=== PATIENT | male | born 1950 ===

== ENCOUNTER 2021-07-09 22:16 | Inpatient (IN) | payer MEDICARE, OTHER ==
[~2021-07-09] VITALS: Ht 177.8 cm; Wt 64.0 kg
--- NOTE | 2021-07-09 22:21 | NUR ---
PT BIB [facility] FROM HOME C/O CP THAT STARTED 1 HR [employer]. PARAMEDICS GAVE PT ASPIRIN 325 ON FIELD, UPON ARRIVAL PT DENIES PAIN. AO X4, NO SOB OR LABORED BREATHING, DENIES N/V. NO VAZ/DIZZYNESS. CLEAR SPEECH, COMPLETE SENTENCES. BILATERAL HAND TRAINING SPECIALIST EQUAL, ABLE TO AMBULATE FROM GURNEY TO BED, ABLE TO MOVE ALL EXTEMITIES WITHIN NORMAL LIMITS.
--- NOTE | 2021-07-09 22:22 | NUR ---
DR. CHAPARRO AT BEDSIDE, MSE IN PROGRESS.
--- NOTE | 2021-07-09 22:27 | NUR ---
XRAY AT BEDSIDE.
[2021-07-09] MEDS ORDERED: DONE5TAB7 PO (22:29)
[2021-07-09] MEDS ORDERED: SILD50TA PO (22:29)
[2021-07-09] MEDS ORDERED: LISI-782 PO (22:29)
[2021-07-09] MEDS ORDERED: CLOP75TA15 PO (22:29)
[2021-07-09 22:45] LABS: HEMATOCRIT 38.6 % (36.7-47.1); MEAN CORPUSCULAR HEMOGLOBIN 33.5 uug (23.8-33.4); MEAN CORPUSCULAR VOLUME 96.8 fL (73.0-96.2); PLATELET COUNT (AUTO) 256 K/uL (152-348)
[2021-07-09 22:50] LABS: CARBON DIOXIDE 25 mmol/L (21-32); CHLORIDE 104 mmol/L (98-107); CREATININE 1.4 mg/dL (0.6-1.3); GLUCOSE 107 mg/dL (74-106); POTASSIUM 3.9 mmol/L (3.5-5.1); UREA NITROGEN, BLOOD 26 mg/dL (7-18)
[2021-07-09 23:01] LABS: ALANINE AMINOTRANSFERASE 22 U/L (16-63); ALKALINE PHOSPHATASE 73 U/L (50-136); ASPARTATE AMINOTRANSFERASE 17 U/L (15-37); BILIRUBIN,DIRECT 0.1 mg/dL (0.0-0.2); BILIRUBIN,TOTAL 0.2 mg/dL (0.2-1.0); TOTAL PROTEIN, SERUM 7.5 g/dL (6.4-8.2)
--- NOTE | 2021-07-09 23:27 | NUR ---
Pt needs further follow up with medication dosages and frequencies.
[2021-07-10] MEDS ORDERED: ONDANSETRON 4 MG/2 ML VIAL IV PRN
[2021-07-10] MEDS ORDERED: REMEDY ESSENTIAL ZINC PASTE 113 GM TP PRN
[2021-07-10] MEDS ORDERED: ACETAMINOPHEN 325 MG TABLET PO PRN
[2021-07-10] MEDS ORDERED: MAGNESIUM HYDROXIDE 30 ML LIQUID UDC PO PRN
[2021-07-10] MEDS ORDERED: IV NS 1000 ML 1,000 ML IV ONE (00:15)
--- NOTE | 2021-07-10 01:17 | NUR ---
Gave report to Peggy BLEVINS. Pt being admitted to Tele room [address] Arceo, DX: Chest Pain.
--- NOTE | 2021-07-10 01:54 | NUR ---
Pt brought upstairs in stable condition.
--- NOTE | 2021-07-10 02:30 | NUR ---
Admitted pt to tele via gurben from ER accompanied by FELICITY Verduzco. He is alert and oriented x4, able to make needs known, Telugu/Urdu speaking. On room air, no respiratory distress noted. VS taken, denies pain and discomfort at this time. NSR on Tele. He is continent to B&B. Urinal at bedside. IV line on LAC #20 patent and intact. Started on NS 1L running at 100 ml/hr. No s/sx of infiltration. Skin is intact. All needs attended. Call light placed within reach. Will continue to monitor.
[2021-07-10 02:31] VITALS: BP 142/87
[2021-07-10 04:00] VITALS: BP 148/88
[2021-07-10 06:50] LABS: HEMATOCRIT 36.2 % (36.7-47.1); MEAN CORPUSCULAR HEMOGLOBIN 32.9 uug (23.8-33.4); MEAN CORPUSCULAR VOLUME 98.3 fL (73.0-96.2); PLATELET COUNT (AUTO) 246 K/uL (152-348)
[2021-07-10 07:24] LABS: CREATININE 1.2 mg/dL (0.6-1.3); PHOSPHOROUS 3.8 mg/dL (2.5-4.9); POTASSIUM 4.1 mmol/L (3.5-5.1)
--- NOTE | 2021-07-10 07:30 | NUR ---
Awake, alert, oriented x 4. Denies chest pain. Room air. IVF infusing.
[2021-07-10] MEDS: CLOPIDOGREL 75 MG TABLET PO SCH (10:10)
[2021-07-10] MEDS: LISINOPRIL 5 MG TABLET PO SCH (10:10)
[2021-07-10] MEDS: DONEPEZIL 5 MG TABLET PO SCH (10:10)
[2021-07-10 12:00] VITALS: BP 153/63
--- NOTE | 2021-07-10 15:30 | NUR ---
Dr. Lizarraga seen for cardiology consult with order for CTA Cardio. CHELI Blackmon informed, arranging for schedule
[2021-07-10 16:00] VITALS: BP 149/60
[2021-07-10] MEDS: ASPIRIN EC 81 MG TABLET.DR PO SCH (16:46)
[2021-07-10] MEDS: METOPROLOL TARTRATE 25 MG TABLET PO SCH ×2 (16:47→21:13)
--- NOTE | 2021-07-10 18:00 | NUR ---
Denies chest pain, not in distress
[2021-07-10 20:24] VITALS: BP 148/64
[2021-07-10] MEDS: ATORVASTATIN 40 MG TABLET PO SCH (21:12)
[2021-07-11 00:18] VITALS: BP 132/69
[2021-07-11 04:00] VITALS: BP 164/71
--- NOTE | 2021-07-11 08:00 | NUR ---
Dr Fernandez here to see patient. Discussed CTA procedure pt agreeable with test. Awaiting CM arrangement for CTA @ [facility]. PT is in no acute distress. Call light is within reach. Pt alert and oriented x 4.
[2021-07-11] MEDS: CLOPIDOGREL 75 MG TABLET PO SCH (09:02)
[2021-07-11] MEDS: ASPIRIN EC 81 MG TABLET.DR PO SCH (09:02)
[2021-07-11] MEDS: DONEPEZIL 5 MG TABLET PO SCH (09:02)
[2021-07-11] MEDS: LISINOPRIL 5 MG TABLET PO SCH (09:03)
[2021-07-11] MEDS: METOPROLOL TARTRATE 25 MG TABLET PO SCH ×2 (09:04→20:33)
[2021-07-11 12:00] VITALS: BP 161/69
--- NOTE | 2021-07-11 13:30 | NUR ---
CT angiogram consent signed. PT picked up by ambulance.
--- NOTE | 2021-07-11 16:46 | NUR ---
f/u call made to AMBERLY in MRI for the CTA result. No result yet.
--- NOTE | 2021-07-11 18:30 | NUR ---
Notified DR mccain of cta result. pt to stay and hold d/c.
--- NOTE | 2021-07-11 18:47 | NUR ---
Per Dr Fernandez pt is to stay and possible stent placement for weds. PT agreeable on staying over. PT is in no acute distress. Denies any cp today.
[2021-07-11] MEDS ORDERED: ICOS1CAP PO (19:50)
[2021-07-11] MEDS ORDERED: OMEP40CA21 PO (19:50)
[2021-07-11] MEDS ORDERED: MEMA1CAP5 PO (19:52)
[2021-07-11] MEDS ORDERED: CARV6.25 PO (19:52)
[2021-07-11] MEDS ORDERED: MAGN400T26 PO (19:52)
[2021-07-11] MEDS ORDERED: LISI1TAB55 PO (19:52)
[2021-07-11] MEDS: ATORVASTATIN 40 MG TABLET PO SCH (20:32)
--- NOTE | 2021-07-11 21:56 | NUR ---
Received pt resting in bed comfortably. IV in L FA infiltrated, taken out. Replaced IV in L Hand 22g. AO x 4. On room air saturating at 98%. No signs of acute distress at this time. Copy of CTA results given to pt, per pt's request. Call lights within reach. Safety measures initiated.
[2021-07-12] MEDS ORDERED: IV NS 1000 ML 1,000 ML IV PRN (06:45)
--- NOTE | 2021-07-12 07:30 | NUR ---
Received patient in bed awake, alert and oriented times 4. No sign of distress noted. Safety precautions are in place. Will continue to monitor.
[2021-07-12 07:34] LABS: MEAN CORPUSCULAR HEMOGLOBIN 33.4 uug (23.8-33.4); MEAN CORPUSCULAR VOLUME 96.4 fL (73.0-96.2); PLATELET COUNT (AUTO) 229 K/uL (152-348)
[2021-07-12 07:44] LABS: CREATININE 1.3 mg/dL (0.6-1.3)
[2021-07-12] MEDS ORDERED: AMLODIPINE 5 MG TABLET PO SCH (09:00)
[2021-07-12] MEDS: DONEPEZIL 5 MG TABLET PO SCH (09:52)
[2021-07-12] MEDS: CLOPIDOGREL 75 MG TABLET PO SCH (09:52)
[2021-07-12] MEDS: ASPIRIN EC 81 MG TABLET.DR PO SCH (09:52)
[2021-07-12] MEDS: METOPROLOL TARTRATE 25 MG TABLET PO SCH ×2 (09:56→20:18)
[2021-07-12] MEDS ORDERED: METO25TA6 PO (11:23)
[2021-07-12] MEDS ORDERED: ASPI81TA31 PO (11:23)
[2021-07-12] MEDS ORDERED: ATOR40TA PO (11:23)
[2021-07-12] MEDS ORDERED: AMLO-212 PO (11:24)
[2021-07-12 12:00] VITALS: BP 162/62
[2021-07-12] MEDS ORDERED: NICOTINE 14 MG/24HR PATCH TD SCH (15:45)
[2021-07-12 16:00] VITALS: BP 156/75
--- NOTE | 2021-07-12 18:49 | NUR ---
Patient left in room. He states that he understands and is in agreement with plan of care. patient tried leaving the facility to go and smoke a cigarette during shift, He was stopped by security and instructed to go back to his room. Pt was compliant. All medications given as ordered. Pt is being discharged and transferred to [facility] to have a stent place on 07/13. Safety measures implemented. Will endorse to oncoming nurse
[2021-07-12 19:58] VITALS: BP 120/35
[2021-07-12 20:02] VITALS: BP 158/80
[2021-07-12] MEDS: ATORVASTATIN 40 MG TABLET PO SCH (20:16)
[2021-07-12 20:18] VITALS: BP 158/80
--- NOTE | 2021-07-12 20:28 | NUR ---
Patient discharged to [facility]. Picked up by [facility] via [facility]am in stable condition.Denies chest pain or discomfort.Discharged paper and instructions given to patient .All belongings taken and signed by patient. Tele box removed.
[2021-07-12] MEDS ORDERED: IV NORMAL SALINE 0 ML IV ONE (20:43)
[2021-07-12] MEDS ORDERED: SWABABLE VALVE TRANSFER SET EA MC ONE (20:43)
[2021-07-12] MEDS ORDERED: IOHEXOL 300MG/ML 100 ML INFUS..BTL ONE (20:43)
== END 2021-07-12 20:30 | disposition short-term general hospital (02) | DRG 302 ==
LOC: ER 22:20 → TELE3 07-10 01:22
PROVIDERS: ADMIT Family Medicine; ATTEND Nurse Practitioner Acute Care
DX: I25.110 Atherosclerotic heart disease of native coronary artery with unstable angina pectoris (principal); N17.0 Acute kidney failure with tubular necrosis; Q21.1 Atrial septal defect; I10 Essential (primary) hypertension; E78.5 Hyperlipidemia, unspecified; J44.9 Chronic obstructive pulmonary disease, unspecified; F17.210 Nicotine dependence, cigarettes, uncomplicated; Z95.5 Presence of coronary angioplasty implant and graft; Z79.02 Long term (current) use of antithrombotics/antiplatelets; Z79.899 Other long term (current) drug therapy; F03.90 Unspecified dementia, unspecified severity, without behavioral disturbance, psychotic disturbance, mood disturbance, and anxiety
CPT/HCPCS: 36415; 71045; 83735; 84100; 84484; 85025; 93005; 93307; A4663; G0378; J7030; J7050; Q9967